=== PATIENT | male | born 1955 | race Caucasian/White ===

== ENCOUNTER 2018-07-07 10:18 | Day surgery (SDC) | payer OTHER, BC ==
[2018-07-07] MEDS ORDERED: PROPOFOL 20 ML ×2 (11:50→12:09)
[2018-07-07] MEDS ORDERED: FENTAnyl 50 MCG/ML VIAL (11:50)
[2018-07-07] MEDS ORDERED: ONDANSETRON 4 MG INJ IV (12:00)
== END 2018-07-07 13:43 | disposition home or self-care (01) ==
LOC: GIL 10:18
DX: R19.7 Diarrhea, unspecified (principal); K64.8 Other hemorrhoids; Z86.010 Personal history of colon polyps
CPT/HCPCS: 45380; 82962; 88305